=== PATIENT | female | born 2000 | race Caucasian/White ===

== ENCOUNTER 2022-05-28 18:25 | Outpatient (CLI) | payer OTHER, SELFPAY ==
--- OUTSIDE RECORDS SUMMARY | 2022-06-10 11:03 | XMS_ITS | Clinical Summary ---
:2000 Author Organization [employer] [facility] [place] [address] Care Team Providers Name Role Phone Clinic, [...] disorder once daily. s ent)) (HC) traZODone TAKE 1/2 TO 1 10 Tablet 0 05/02/2022 Disco ntinued (DESYREL) 50 mg TABLET(25 TO 2 tabletIndications 50 MG) BY : Insomnia, MOUTH AT unspecified type BEDTIME NEEDED FOR SLEEP traZODone TAKE 1/2 TO 1 10 Tablet 0 05/19/2022 Disco ntinued (DESYREL) 50 mg TABLET(25 TO 2 ( *Medication tabletIndications 50 MG) BY ad justment) : Insomnia, MOUTH AT unspecified type BEDTIME NEEDED FOR SLEEP Active Problems Problem Noted Date Bipolar 1 disorder 05/07/2021 Anxiety 05/07/2021 Encounters Date Type Specialty Care Team Description 05/29/2022 Orders Only Scanner <No scans attac hed> 05/29/2022 Orders Only Scanner <No scans attac hed> 05/29/2022 Orders Only Scanner <No scans attac hed> 05/27/2022 Office Visit Gloria Narvaez, Medic ation Management; BANKING SERVICES CLERK Follow Up 05/27/2022 Travel 05/26/2022 Refill Gloria Narvaez, Refil l Request (Trazodone) BANKING SERVICES CLERK 05/15/2022 Refill Gloria Narvaez, Refil l Request (Trazodone) BANKING SERVICES CLERK 04/29/2022 Refill Gloria Narvaez, Refil l Request (Trazodone) BANKING SERVICES CLERK 04/17/2022 Office Visit Gloria Narvaze, Medic ation Management; BANKING SERVICES CLERK Follow Up 04/17/2022 Travel 03/24/2022 Office Visit Gloria Narvaez Follo w Up BANKING SERVICES CLERK 03/24/2022 Travel from Last 3 Months Immunizations Name Administration Dates Next Due COVID-19 vaccine (Salesconx 30mcg/0.3mL) PF, 1, 12/12/2020 MDV Social History [...] Mass Index - - Plan of Treatment Upcoming Encounters Date Type Specialty Care Team Description 06/10/2022 Office Visit Betty Castro Ma, PA [address] [place], [place] [address] (Wo rk) Health Maintenance Due Date Last Done Comments Well Child Check for age 1006/20/2005 3-20 Pneumococcal series for age 1107/21/2008 19-64 (1 - PCV) HPV series for age 9-26 (1 - 2013 2-dose series) Tdap 2013 Chlamydia for age 16-24 2018 Hepatitis C screening for 2020 age 18-79 COVID-19 vaccine series (3 - 02/27/2021 01/02/2021, 021 Booster for Pfizer series) Influenza for age 9-49 05/01/2022 BMI (ht and wt on same day) 05/07/2022 05/07/2021, 11/08/19 21 for age 18+ Depression screening for age 0905/27/2023 05/27/2022, 022, 12+ 04/17/2022, Additional history exists Meningococcal series for age Aged Out No longer eligible -21 based on patient 's age to complete this topic Procedures Procedure Name Priority Date/Time Associated Diagnosis Comme nts SCAN-RADIOLOGY 05/29/2022 12:00 AM Result s for this REPORT CDT procedure are i n the results section. SCAN-RADIOLOGY 05/29/2022 12:00 AM Result s for this REPORT CDT procedure are i n the results section. SCAN-RADIOLOGY 05/29/2022 12:00 AM Result s for this REPORT CDT procedure are i n the results section. from Last 3 Months Results SCAN-RADIOLOGY REPORT (05/29/2022 12:00 AM CDT)Only the most recent of3 results within the time period is included. Narrative This result has an attachment that is no t available. Scanner OTHER from Last 3 Months Insurance Payer Benefit Plan / Subscriber ID Effective Dates Phone Addre ss Type Group BLUE CROSS BLUE CROSS OF [id number] 2021-Present [address] [address] [place] [address] Care Teams Demand Equipment Repairer Relationship Specialty Start Date End Date Clinic, No Pcp Or PCP - General 11/02/20 .
== END 2022-05-28 18:26 | disposition home or self-care (01) ==
PROVIDERS: PCP Physician Assistant; Visit Provider Family Medicine
DX: S89.92XA Unspecified injury of left lower leg, initial encounter (principal); V13.4XXA Pedal cycle driver injured in collision with car, pick-up truck or van in traffic accident, initial encounter; Y92.414 Local residential or business street as the place of occurrence of the external cause; Y93.55 Activity, bike riding
CPT/HCPCS: A0998

== ENCOUNTER 2022-05-29 15:33 | Emergency (ER) | payer OTHER, SELFPAY ==
[2022-05-29] VITALS (9 sets, daily range): BP systolic 118–138; BP diastolic 77–102; PULSE 69–92; RESP 16–20; TEMP 37.2; O2SAT 94–99; BMI 21.5
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
--- OUTSIDE RECORDS SUMMARY | 2022-05-29 17:28 | XMS_ITS | Clinical Summary ---
:2000 Author Organization [employer] [facility] [place] [address] Care Team Providers Name Role Phone Clinic, No Pcp Or Primary Care Provider Unavailable Allergies Active Allergy Reactions Severity Noted Date Comments Caramel GI Upset 11/07/2020 vomiting Spider Venom Other - Describe In 05/08/2021 Passes o ut, shaky, Comment Field severe swellin g Medications Medication Sig Dispensed Refills Start Date End Date Status medication order CBD Gummies 0 06/04/2021 Active composer Daily cariprazine Take 1 30 Capsule 1 05/27/2022 Active (Vraylar) 6 mg Capsule (6 capsuleIndication mg) by mouth s: Mood disorder once daily. (HC) cariprazine Take 1 30 Capsule 1 04/17/2022 Discon tinued (Vraylar) 6 mg Capsule (6 2 (Reo rder capsuleIndication mg) by mouth (E-cancel not s: Mood disorder once daily. s ent)) (HC) traZODone Take 0.5-1 10 Tablet 0 04/21/2022 Disconti nued (DESYREL) 50 mg Tablets 2 tabletIndications (25-50 mg) by : Insomnia, mouth at unspecified type bedtime if needed for Sleep. traZODone TAKE 1/2 TO 1 10 Tablet 0 05/02/2022 Disco ntinued (DESYREL) 50 mg TABLET(25 TO 2 tabletIndications 50 MG) BY : Insomnia, MOUTH AT unspecified type BEDTIME NEEDED FOR SLEEP traZODone TAKE 1/2 TO 1 10 Tablet 0 05/19/2022 Disco ntinued (DESYREL) 50 mg TABLET(25 TO 2 ( *Medication tabletIndications 50 MG) BY mathew bryan) : Insomnia, MOUTH AT unspecified type BEDTIME NEEDED FOR SLEEP Active Problems Problem Noted Date Bipolar 1 disorder 05/07/2021 Anxiety 05/07/2021 Encounters Date Type Specialty Care Team Description 05/27/2022 Office Visit Gloria Narvaez, Medic ation Management; X RAY EQUIPMENT SERVICER Follow Up 05/27/2022 Travel 05/26/2022 Refill Solange Gloriacam Sharma, Refil l Request (Trazodone) X RAY EQUIPMENT SERVICER 05/15/2022 Refill Andriaalexsander Gloriacam Sharma Refil l Request (Trazodone) X RAY EQUIPMENT SERVICER 04/29/2022 Refill AndriaGloria beltre Refil l Request (Trazodone) X RAY EQUIPMENT SERVICER 04/17/2022 Office Visit Gloria Narvaez, Medic ation Management; X RAY EQUIPMENT SERVICER Follow Up 04/17/2022 Travel 03/24/2022 Office Visit Gloria Narvaez Follo w Up X RAY EQUIPMENT SERVICER 03/24/2022 Travel from Last 3 Months Immunizations Name Administration Dates Next Due COVID-19 vaccine (Pirq 30mcg/0.3mL) PF, 1, 12/12/2020 MDV Social History Tobacco Use Types Packs/Day Years Used Date Never Smoker Smokeless Tobacco: Never Used Tobacco Cessation: Counseling Given: Yes Alcohol Use Standard Drinks/Week Comments Not Currently 0 (1 standard drink = 0.6 oz pure alcoho l) Sex Assigned at Date Recorded Not on file COVID-19 Exposure Response Date Recorded In the last 10 days, have you been in contact with No / Unsu re 05/27/2022 7:25 AM CDT someone who was confirmed or suspected to have Coronavirus/COVID-19? Obstetrics History Last Filed Vital Signs Vital Sign Reading Time Taken Comments Blood Pressure 125/81 05/27/2022 7:33 AM CDT Pulse 73 05/27/2022 7:33 AM CDT Temperature - - Respiratory Rate - - Oxygen Saturation 98% 05/07/2021 2:56 PM CDT Inhaled Oxygen Concentration - - Weight 56.8 kg (125 lb 4.8 oz) 04/17/2022 10:04 AM CDT Height 162 cm (5' 3.78) 05/07/2021 2:56 PM CDT Body Mass Index - - Plan of Treatment Health Maintenance Due Date Last Done Comments Well Child Check for age 1006/20/2005 3-20 Pneumococcal series for age 1107/21/2008 19-64 (1 - PCV) HPV series for age 9-26 (1 - 2013 2-dose series) Tdap 2013 Chlamydia for age 16-24 2018 Hepatitis C screening for 2020 age 18-79 COVID-19 vaccine series (3 - 06/04/2021 01/02/2021, 021 Booster for Pfizer series) Influenza for age 9-49 05/01/2022 BMI (ht and wt on same day) 05/07/2022 05/07/2021, 11/08/19 21 for age 18+ Depression screening for age 0905/27/2023 05/27/2022, 022, 12+ 04/17/2022, Additional history exists Meningococcal series for age Aged Out No longer eligible - based on patient 's age to complete this topic Results Not on filefrom Last 3 Months Insurance Payer Benefit Plan / Subscriber ID Effective Dates Phone Addre ss Type Group BLUE CROSS BLUE CROSS OF [id number] 2021-Present [address] [address] [place] [address] Care Teams Reinspector Relationship Specialty Start Date End Date Clinic, No Pcp Or PCP - General 11/02/20 .
== END 2022-05-29 18:31 | disposition home or self-care (01) ==
PROVIDERS: Emergency Provider Family Medicine; PCP Physician Assistant
DX: R07.89 Other chest pain (principal); M25.571 Pain in right ankle and joints of right foot; M79.672 Pain in left foot; V13.0XXA Pedal cycle driver injured in collision with car, pick-up truck or van in nontraffic accident, initial encounter
CPT/HCPCS: 71101; 73610; 73630; 76604; 76705; 93308; 99284; 99291

== ENCOUNTER 2022-10-18 21:07 | Outpatient (CLI) | payer OTHER, SELFPAY | END 2022-10-18 21:08 | disposition home or self-care (01) | LOC: AMB 10-27 15:43 | PROVIDERS: PCP Physician Assistant; Visit Provider Family Medicine | DX: R20.0 Anesthesia of skin (principal) ==

== ENCOUNTER 2023-02-16 20:43 | Emergency (ER) | payer OTHER, SELFPAY ==
[2023-02-16 21:02] VITALS: BP 118/70; PULSE 84; RESP 16; TEMP 37.7; O2SAT 96; BMI 22.3
--- NOTE | 2023-02-16 22:53 | ED_ITS ---
HPI - General Adult General Chief complaint: Abdominal Pain Stated complaint: Abdominal pain, possibly ate wire brush bristle Time Seen by Provider: 02/16/23 22:48 History of Present Illness HPI narrative: Pt aox4, ABCs intact. Pt arrives c/o periumbilical abdominal pain that started this morning. Patient states that she ate some grilled chicken and pork last night off a grill that was cleaned with a wire brush. Patient having black and loose stools since. patient also feeling nauseated. 22-year-old young woman presentation to the emergency department with concern of left low abdominal pain. Started more this morning. She recalls eating some grilled meat at the boyfriend's parents home on a grill that had been clean with a wire brush. She remembers this sharp object in her mouth that she was uncertain of at the time but went ahead and swallowed. This morning started to have some abdominal pain and she has noted ?black and tarry stools?. Is feeling nauseated well. No fever. Generally quite healthy. She has not taken any Pepto-Bismol or anything else that she would associate with having black stools. Sharp and somewhat colicky pain. No family history of bowel disorders rheumatological or otherwise. Related Data Home Medications Medication Instructions Recorded Confirmed cariprazine 6 mg capsule (Vraylar) 6 mg PO DAILY 05/29/22 05/29/22 cbd gummies 05/29/22 Allergies Allergy/AdvReac Type Severity Reaction Status Date / Time spider venom AdvReac Intermediate pain, Verified 02/17/23 00:26 syncope Review of Systems Status of ROS: Reports: 6 or more systems reviewed and unremarkable except as noted in History and below [facility] Social History Smoking Status: Never smoker Do you use any of these nicotine containing products: None Second hand tobacco smoke exposure: No How often do you have a drink containing alcohol: 2-4 times a month How many standard drinks containing alcohol do you have on a typical day: 3 or 4 How often do you have six or more drinks on one occasion: Never AUDIT-C Alcohol total score: 3 Non-prescribed substance use: marijuana (any form) service: No Exam Narrative: Exam Narrative: Pleasant. Direct in communication. NAD. Breathing easily. Heart with regular rate and rhythm. Lungs are clear. Abdomen with present bowel sounds and mild to moderately tender in the left lower abdomen. No peritoneal signs. Extremities are without edema. She is well-perfused. Oropharynx is moist. Const: Vital Signs, click to edit/add: Vital Signs - 24 hr 02/16/23 21:02 02/17/23 00:12 Temperature 99.8 F H Pulse Rate [Pulse Oximeter] 84 72 Respiratory Rate 16 18 Blood Pressure [Ri ght Upper Arm] 118/70 121/54 L Pulse Oximetry 96 98 Oxygen Delivery Me thod Room Air Documenting provider has reviewed patient's vital signs: yes Course Vital Signs Vital signs: Initial Vital Signs Temperature 99.8 F H 02/16/23 21:02 Temperature Source Temporal Artery Scan 02/16/23 21:02 Pulse Rate 84 02/16/23 21:02 Respiratory Rate 16 02/16/23 21:02 Blood Pressure 118/70 02/16/23 21:02 Blood Pressure Mean 86 02/16/23 21:02 Pulse Oximetry 96 02/16/23 21:02 Vital Signs Temperature 99.8 F H 02/16/23 21:02 Pulse Rate 84 02/16/23 21:02 Respiratory Rate 16 02/16/23 21:02 Blood Pressure 118/70 02/16/23 21:02 Pulse Oximetry 96 02/16/23 21:02 Temperature 99.8 F H 02/16/23 21:02 Pulse Rate 72 02/17/23 00:12 Respiratory Rate 18 02/17/23 00:12 Blood Pressure 121/54 L 02/17/23 00:12 Pulse Oximetry 98 02/17/23 00:12 Oxygen Delivery Method Room Air 02/17/23 00:12 Medical Decision Making [facility] Narrative Medical decision making narrative: Certainly possible she does have micro perforation from swallowing wire bristle. Stool guaiac I think is less helpful at this time. Could do a flat plate looking for free air but if present would want to look further with CT enough absent would want to look further. Still with potential urinary tract infection in differential, ovarian cyst. Infectious enteritis also possibility. Does not appear to be constipated. Pending labs. Hydrate also for IV contrasted media. Does not appear to need pain medication antiemetic at this time. Labs are reassuring. CT scan without evidence of acute abnormality. I did review these images. Radiology over-read however as below. Discussed findings with Ms. Dukes and her parents. 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 It measures 2.4 x 1.7 x 8.5 centimeters. It has features suggesting a benign, slow-growing process. The pineal seen to correlate with a history of left lower quadrant pain. No sign of diverticulosis or diverticulitis. Normal appearance of the left urinary system and left adnexal region. Normal CT of the abdomen with contrast. See patient discharge plan Lab Data Lab results reviewed: Yes I reviewed the patient's lab results Labs: Lab Results 02/16/23 02/16/23 02/17/23 Range/Units 23:21 23:25 01:18 WBC 6.44 (4.50-11.00) K/uL RBC 4.76 (4.00-5.20) m/uL Hgb 13.5 (12.0-16.0) gm/dL Hct 39.6 (33.0-51.0) % MCV 83 (80-100) fL MCH 28 (26-34) pg MCHC 34 (32-36) gm/dL RDW Coeff of Zeb 12.6 (11.5-15.5) % Plt Count 296 (140-440) K/uL Neut % (Auto) 58.6 (42.0-72.0) % Lymph % (Auto) 32.3 (20-44) % Mccreary % (Auto) 7.5 (0.0-11.0) % Eos % (Auto) 1.1 (0.0-7.0) % Baso % (Auto) 0.3 (0.0-3.0) % Neut # (Auto) 3.78 (1.7-7.0) K/uL Lymph # (Auto) 2.08 (0.90-2.90) K/uL Mccreary # (Auto) 0.50 (0.00-0.90) K/UL Eos # (Auto) 0.07 (0.00-0.50) K/uL Baso # (Auto) 0.02 (0.00-0.30) K/uL Sodium 133 L (135-149) mmol/L Potassium 3.6 (3.6-5.1) mmol/L Chloride 103 (96-114) mmol/L Carbon Dioxide 23 (20-32) mmol/L BUN 19 (5-24) mg/dL Creatinine 0.8 (0.5-1.5) mg/dL Estimated Creat Clear 96.86 Estimated GFR 108 ml/min Glucose 102 (60-115) mg/dL Calcium 9.6 (8.4-10.6) mg/dL C-Reactive Protein < 0.5 L (0.5-1.0) mg/dL HCG, Qual Negative (Negative) Urine Color Yellow (Yellow) Urine Appearance Slightly Cloudy A (Clear) Urine pH 5.5 (5.0-8.5) Ur Specific [place] 1.010 (1.000-1.030) Urine Protein Negative (Negative) Urine Glucose (UA) Negative (Negative) Urine Ketones Negative (Negative) Urine Blood Negative (Negative) Urine Nitrite Negative (Negative) Urine Bilirubin Negative (Negative) Urine Urobilinogen 0.2 (0.2-1.0) Ur Leukocyte Esterase Negative (Negative) Urine RBC 0-2 (0-2) Urine WBC 0-2 (0-5) Ur Squamous Epith Cells Moderate A (None-Few) Urine Bacteria Few A (None) Urine Mucus Few A (None) Discharge Plan Discharge Clinical Impression: Colicky abdominal pain, Retroperitoneal mass Patient Disposition: Home w/ Parent or Adult Condition: Improved Additional Instructions: Return for marked increase in persistent pain, repeated vomiting, associated fever. Might want to follow-up imaging in 9-12 months regarding this retroperitoneal structure. Prescriptions: No Action Vraylar 6 mg capsule 6 mg PO DAILY cbd gummies Follow Up/Referrals: Betty Castro PA [Primary Care Provider] - Stand Alone Forms: MyHealth Info Instructions
--- NOTE | 2023-02-16 23:06 | CRLHL7_ITS ---
For Patients: As a result of the 21st Century Cures Act, medical imaging exams and procedure reports are released immediately into your electronic medical record. You may view this report before your referring provider. If you have questions, please contact your health care provider. INDICATION: Left lower abdominal pain. Possible ingestion of a metal bristle on Thursday. COMPARISON: None available. TECHNIQUE: CT examination of the abdomen and pelvis was performed with the uneventful intravenous administration of 58 cc of Isovue 370 while 3 mm thick axial sections were obtained from the lung bases through the pubic symphysis. Oral contrast was not administered. Please note that all CT scans at this facility use dose modulation, iterative reconstruction, and/or weight-based dosing when appropriate to reduce radiation dose to as low as reasonably achievable. FINDINGS: In the abdomen, the liver, spleen, pancreas, and adrenals are normal in appearance. The kidneys are normal in appearance. The gallbladder is normal in appearance. The abdominal aorta is normal in caliber with no sign of dilatation. There is no sign of retroperitoneal mass or adenopathy. The stomach, loops of small bowel, and colon in the abdomen are normal in appearance. In the pelvis, the appendix is normal in appearance with no sign of inflammatory process. The loops of small bowel, colon, and rectum in the pelvis are normal in appearance. There is a tubular structure in the left retroperitoneum, located between the left psoas muscle and the iliacus muscle, with somewhat soft tissue density superiorly and lower density in its mid and inferior portions, for instance on axial image 72 series 2 and coronal image 63 series 4. It measures 2.4 x 1.7 centimeters in diameter and 8.5 centimeters in length. The lower density region measures 6.7 centimeters in length. This may be a retroperitoneal lymphangioma or hemangioma. The appearance is that of a benign process, and malignancy is unlikely. The uterus and adnexal regions are normal in appearance. The urinary bladder is normal in appearance. There is no sign of pelvic or inguinal mass or adenopathy. There is no sign of free air or free fluid in the abdomen or pelvis. The lung bases are clear. There is a mild C-shaped scoliosis of the thoracic and lumbar spine convex to the left. 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 It measures 2.4 x 1.7 x 8.5 centimeters. It has features suggesting a benign, slow-growing process. The pineal seen to correlate with a history of left lower quadrant pain. No sign of diverticulosis or diverticulitis. Normal appearance of the left urinary system and left adnexal region. Normal CT of the abdomen with contrast. Please note that all CT scans at this facility use dose modulation, iterative reconstruction, and/or weight-based dosing when appropriate to reduce radiation dose to as low as reasonably achievable. Dictated by Dez Blank MD @ 02/17/2023 12:56:03 AM (Electronically Signed)
--- OUTSIDE RECORDS SUMMARY | 2023-02-16 23:16 | XMS_ITS | Continuity of Care Document ---
Author Name Unknown Organization [facility] Address [address] [facility] [place] [address] Phone Care Team Providers Care Cork Slabs Sawyer Name Role Phone Juan SOCIAL SERVICE TECHNICIAN SOCIAL SERVICE TECHNICIAN, Breana Unavailable Unavailable Allergies, Adverse Reactions, Alerts Substance Reaction Status Criticality No Known Allergies Active No Inform ation Medications Medication Instructions Dosage Effective Dates (start - stop) Status Comments Vraylar 1.5 mg capsule take 1 capsule by oral route every day 1.5 MG - Active trazodone 50 mg tablet take 1.5 tablet by oral route every day At bedtime as needed 75 MG - Active EPIDIOLEX (unknown strength) CBD gummies: 25mg at bedtime Not Available - Active GLUCOSAMINE SULFATE (unknown strength) Not Available - Active MULTIVITAMINS (unknown strength) Not Available - Active Procedures Procedure Date PSYTX PT&/FAMILY 45 MINUTES PSYTX PT&/FAMILY 45 MINUTES PSYTX PT&/FAMILY 45 MINUTES PSYTX PT&/FAMILY 45 MINUTES PSYTX PT&/FAMILY 45 MINUTES PSYTX PT&/FAMILY 45 MINUTES PSYTX PT&/FAMILY 45 MINUTES PSYTX PT&/FAMILY 45 MINUTES PSYTX PT&/FAMILY 45 MINUTES OFFICE/OUTPATIENT VISIT, EST OFFICE/OUTPATIENT VISIT, EST PSYTX PT&/FAMILY 45 MINUTES PSYTX PT&/FAMILY 45 MINUTES OFFICE/OUTPATIENT VISIT, EST PSYTX PT&/FAMILY 45 MINUTES OFFICE/OUTPATIENT VISIT, EST PSYTX PT&/FAMILY 45 MINUTES OFFICE/OUTPATIENT VISIT, EST PSYTX PT&/FAMILY 45 MINUTES PSYCH DIAGNOSTIC EVALUATION OFFICE/OUTPATIENT VISIT, EST OSTEOPATHIC MANIPULATION OFFICE/OUTPATIENT VISIT, EST OSTEOPATHIC MANIPULATION OFFICE/OUTPATIENT VISIT, EST OSTEOPATHIC MANIPULATION OFFICE/OUTPATIENT VISIT, EST OFFICE/OUTPATIENT VISIT, EST OSTEOPATHIC MANIPULATION OFFICE/OUTPATIENT VISIT, EST OSTEOPATHIC MANIPULATION CRYOTHERAPY OF SKIN OFFICE/OUTPATIENT VISIT, EST OSTEOPATHIC MANIPULATION OFFICE/OUTPATIENT VISIT, EST OSTEOPATHIC MANIPULATION OFFICE/OUTPATIENT VISIT, EST X-RAY EXAM OF RIBS/POSTEROANTERIOR CHEST MINIMUM 3 VIEWS OSTEOPATHIC MANIPULATION OFFICE/OUTPATIENT VISIT, EST PSYTX PT&/FAMILY 45 MINUTES X-RAY EXAM OF ANKLE MINIMUM 3 VIEWS OFFICE/OUTPATIENT VISIT, EST PSYTX PT&/FAMILY 45 MINUTES Sports Physical PSYTX PT&/FAMILY 45 MINUTES PSYTX PT&/FAMILY 45 MINUTES PSYTX PT&/FAMILY 45 MINUTES OSTEOPATHIC MANIPULATION OFFICE/OUTPATIENT VISIT, EST PSYTX PT&/FAMILY 45 MINUTES PSYTX PT&/FAMILY 45 MINUTES PSYTX PT&/FAMILY 45 MINUTES OFFICE/OUTPATIENT VISIT, EST X-RAY EXAM OF ANKLE MINIMUM 3 VIEWS X-RAY EXAM OF FOOT COMPLETE MINIMUM 3 EWS OFFICE/OUTPATIENT VISIT, EST OFFICE/OUTPATIENT VISIT, EST OFFICE/OUTPATIENT VISIT, EST OFFICE/OUTPATIENT VISIT, EST OFFICE/OUTPATIENT VISIT, EST OFFICE/OUTPATIENT VISIT, NEW Advance Directives Directive Yes / No Effective Date File Name No Information Encounters Encounter Description Practice Location Reason(s) For Visit Diagnoses Date Provider Providers Copied on Encounter PSYTX PT&/FAMILY 45 MINUTES [facility], [address], [place], [id number], [place] tel:[phone] [facility] Bipolar disorder (chief complaint) Bipolar disorder, current episode mixed, mild 1 Yessica [facility] Breana. [address], [place], [id number], [place]. tel:[phone] Referring Provider: Breana Juan [facility], [address] [place], [address] . tel:[phone] PSYTX PT&/FAMILY 45 MINUTES [facility], [address], [place], [id number], [place] tel:[phone] [facility] Bipolar disorder (chief complaint) Bipolar disord, crnt episode manic w/o psych features, mod 1 Juan [facility] Breana. [address], [place], [id number], [place]. tel:[phone] Referring Provider: Breana Juan [facility], [address] [place], [address] . tel:[phone] PSYTX PT&/FAMILY 45 MINUTES [facility], [address], [place], [id number], [place] tel:[phone] [facility] Bipolar disorder (chief complaint) Bipolar disord, crnt episode manic w/o psych features, mod 1 [facility] Breana. [address], [place], [id number], [place]. tel:[phone] Referring Provider: Breana Juan LPC, [address] [place], [address] . tel:[phone] PSYTX PT&/FAMILY 45 MINUTES [facility], [address], [place], [id number], [place] tel:[phone] [facility] anxiety (chief complaint) Anxiety 1 Juan SOCIAL SERVICE TECHNICIAN Breana. [address], [place], [id number], [place]. tel:[phone] Referring Provider: Breana Juan LPC, [address] [place], [address] . tel:[phone] PSYTX PT&/FAMILY 45 MINUTES [facility], [address], [place], [address], [place] tel:[phone] [facility] anxiety (chief complaint) Anxiety 1 Juan SOCIAL SERVICE TECHNICIAN Breana. [address], [place], [id number], [place]. tel:[phone] Referring Provider: Breana Juan LPC, [address] [place], [address] . tel:[phone] PSYTX PT&/FAMILY 45 MINUTES [facility], [address], [place], [id number], [place] tel:[phone] [facility] Bipolar disorder (chief complaint) Bipolar disorder, current episode mixed, mild 1 Juan SOCIAL SERVICE TECHNICIAN Breana. [address], [place], [id number], [place]. tel:[phone] Referring Provider: Breana Juan LPC, [address] [place], [address] . tel:[phone] PSYTX PT&/FAMILY 45 MINUTES [facility], [address], [place], [address], [place] tel:[phone] [facility] anxiety (chief complaint) Post-traumati c stress disorder, chronic 1 Yessica MCDONALD Breana. [facility], [place], [id number], [place]. tel:[phone] Referring Provider: Breana Juan LPC, [facility] [place], [address] . tel:[phone] PSYTX PT&/FAMILY 45 MINUTES [facility], [facility] [address] [place], [place], [address], [place] tel:[phone] [facility] Bipolar disorder (chief complaint) Bipolar I Disorder, Current or most recent episode depressed, Unspecified 1 Yessica MCDONALD Breana. [facility] [address], [id number], [place]. tel:[phone] Referring Provider: Breana Juan LPC, [address] [place] [address], [address] . tel:[phone] PSYTX PT&/FAMILY 45 MINUTES [facility], [facility] [address] [place], [place], [id number], [place] tel:[phone] [facility] anxiety (chief complaint) Anxiety 1 Yessica MCDONALD Breana. [facility] [address], [id number], [place]. tel:[phone] Referring Provider: Breana Juan LPC, [facility] [place], [address] . tel:[phone] OFFICE/OUTPA TIENT VISIT, EST [facility] Family [facility], [facility] [address] [place], [place], [address], [place] tel:[phone] [facility] Follow Up of insomnia (chief complaint)Fol low Up of Bipolar disorder (chief complaint) Bipolar I Disorder, Current or most recent episode depressed, UnspecifiedIn somnia 1 Kike Valadez. [facility] [place], [address], [place]. tel:[phone] Referring Provider: Rory Stauffer, [facility] [place], [address] . tel:[phone] OFFICE/OUTPA TIENT VISIT, EST [facility], [facility], [place], [address], [place] tel:[phone] [facility] Follow Up of insomnia (chief complaint) InsomniaDepre ssion 1 Kike Valadez. [address] [place] [address], [id number], [place]. tel:[phone] Referring Provider: Rory Stauffer, [facility] [place], [address] . tel:[phone] PSYTX PT&/FAMILY 45 MINUTES [facility], [facility] [address] [place], [place], [address], [place] tel:[phone] [facility] anxiety (chief complaint) Post-traumati c stress disorder, chronic 1 Yessica Toussaint. [facility] [address], [address], [place]. tel:[phone] Referring Provider: Breana Juan LPC, [address] [place] [address], [address] . tel:[phone] PSYTX PT&/FAMILY 45 MINUTES [facility], [facility] [address] [place], [place], [address], [place] tel:[phone] [facility] anxiety (chief complaint) Post-traumati c stress disorder, chronic 1 Yessica Toussaint. [address] [place] [address], [id number], [place]. tel:[phone] Referring Provider: Breana Juan LPC, [address] [place] [address], [address] . tel:[phone] OFFICE/OUTPA TIENT VISIT, EST [facility], [facility], [place], [address], [place] tel:[phone] [facility] Follow Up of Bipolar disorder (chief complaint)ins omnia (chief complaint) Bipolar I Disorder, Current or most recent episode depressed, UnspecifiedIn somnia 1 Kike Valadez. [address] [place] [address], [id number], [place]. tel:[phone] Referring Provider: Rory Stauffer, [address] [place] [address], [address] . tel:[phone] PSYTX PT&/FAMILY 45 MINUTES [facility], [address] [place] [address], [id number], [place] tel:[phone] [facility] anxiety (chief complaint) Post-traumati c stress disorder, chronic 1 Yessica MCDONALD Breana. [address] [place] [address], [id number], [place]. tel:[phone] Referring Provider: Breana Juan LPC, [address] [place] [address], [address] . tel:[phone] OFFICE/OUTPA TIENT VISIT, EST [facility], [address] [place] [address], [id number], [place] tel:[phone] [facility] Follow Up of Bipolar disorder (chief complaint)Fol low Up of insomnia (chief complaint)Mus culoskeletal pain (chief complaint)stewart n continued (chief complaint) Bipolar I Disorder, Current or most recent episode depressed, UnspecifiedIn somniaAnterio r chest-wall painSegmental and somatic dysfunction of thoracic region 1 Kike Valadez. [address] [place] [address], [id number], [place]. tel:[phone] Referring Provider: Rory Stauffer, [address] [place] [address], [address] . tel:[phone] PSYTX PT&/FAMILY 45 MINUTES [facility], [address] [place] [address], [id number], [place] tel:[phone] [facility] anxiety (chief complaint) Post-traumati c stress disorder, chronic 1 Yessica MCDONALD Breana. [address] [place] [address], [id number], [place]. tel:[phone] Referring Provider: Breana Juan LPC, [facility] [place], [address] . tel:[phone] OFFICE/OUTPA TIENT VISIT, EST [facility], [facility] [address] [place], [place], [id number], [place] tel:[phone] [facility] depression (chief complaint)dep ression continued (chief complaint) Bipolar I Disorder, Current or most recent episode depressed, UnspecifiedAn xietyPost-tra umatic stress disorder, chronicInsomn ia Apr-2 1 Kike Valadez. [facility] [address] [place], [address], [place]. tel:[phone] Referring Provider: Rory Stauffer, [facility] [place], [address] . tel:[phone] PSYTX PT&/FAMILY 45 MINUTES [facility], [facility] [address] [place], [place], [address], [place] tel:[phone] [facility] anxiety (chief complaint) Post-traumati c stress disorder, chronic Apr-2 1 Yessica Toussaint. [facility] [address] [place], [address], [place]. tel:[phone] Referring Provider: Breana Juan LPC, [facility] [place], [address] . tel:[phone] PSYCH DIAGNOSTIC EVALUATION [facility], [facility] [address] [place], [place], [address], [place] tel:[phone] [facility] anxiety (chief complaint) Post-traumati c stress disorder, chronic Apr- 1 Yessica Toussaint. [facility] [address] [place], [address], [place]. tel:[phone] Referring Provider: Breana Juan LPC, [facility] [place], [address] . tel:[phone] OFFICE/OUTPA TIENT VISIT, EST [facility], [facility] [address] [place], [place], [address], [place] tel:[phone] [facility] Nail disorder (chief complaint) Ingrown nail Feb- 0 Morgan Santillanie. [address] [place] [address], [address], [place]. tel:[phone] Referring Provider: Rita Lewis, [address] [place] [address], [address]. tel:[phone] OFFICE/OUTPA TIENT VISIT, EST [facility], [address] [place] [address], [id number], [place] tel:[phone] [facility] Follow Up of Musculoskelet al pain (chief complaint) Intercostal painSegmental and somatic dysfunction of rib cage 9 Kike Valadez. [address] [place] [address], [id number], [place]. tel:[phone] Referring Provider: Rory Stauffer, [address] [place] [address], [address] . tel:[phone] OFFICE/OUTPA TIENT VISIT, EST [facility], [address] [place] [address], [id number], [place] tel:[phone] [facility] Back pain (chief complaint) Back painMuscle spasm of backSegmental and somatic dysfunction of thoracic regionSegment al and somatic dysfunction of rib cage 9 Kike Valadez. [address] [place] [address], [id number], [place]. tel:[phone] Referring Provider: Rory Stauffer, [address] [place] [address], [address] . tel:[phone] OFFICE/OUTPA TIENT VISIT, EST [address], [id number], tel:[phone] [facility] Musculoskelet al pain (chief complaint) Intercostal painSegmental and somatic dysfunction of thoracic regionSegment al and somatic dysfunction of lumbar regionSegment al and somatic dysfunction of rib cage 9 Kike Valadez. [address] [place] [address], [id number], . tel:[phone] Referring Provider: Rory Stauffer, [address] [place] [address], [address] . tel:[phone] OFFICE/OUTPA TIENT VISIT, EST [facility], [address] [place] [address], [id number], tel:[phone] [facility] Musculoskelet al pain (chief complaint)Inf ection (soft tissue) (chief complaint) Cellulitis of left toeCellulitis of right toeIntercosta l pain 8 Kike Valadez. [address] [place] [address], [id number], [place]. tel:[phone] Referring Provider: Rory Stauffer, [address] [place] [address], [address] . tel:[phone] OFFICE/OUTPA TIENT VISIT, EST [facility], [address] [place] [address], [id number], tel:[phone] [facility] Follow Up of Musculoskelet al pain (chief complaint)Fol low Up of Infection (soft tissue) (chief complaint) Intercostal painCelluliti s of left toeCellulitis of right toeSegmental and somatic dysfunction of thoracic regionSegment al and somatic dysfunction of rib cage 8 Kike Valadez. [address] [place] [address], [id number], [place]. tel:[phone] Referring Provider: Rory Stauffer, [address] [place] [address], [address] . tel:[phone] OFFICE/OUTPA TIENT VISIT, EST [facility], [address] [place] [address], [id number], tel:[phone] [facility] Follow Up of Musculoskelet al pain (chief complaint)Fol low Up of Infection (soft tissue) (chief complaint) Cellulitis of left toeCellulitis of right toeIntercosta l painSegmental and somatic dysfunction of thoracic regionSegment al and somatic dysfunction of rib cage May- 8 Kike Valadez. [address] [place] [address], [id number], [place]. tel:[phone] Referring Provider: Rory Stauffer, [address] [place] [address], [address] . tel:[phone] OFFICE/OUTPA TIENT VISIT, EST [facility], [address] [place] [address], [id number], [place] tel:[phone] [facility] Medicine [facility] Musculoskelet al pain (chief complaint)Inf ection (soft tissue) (chief complaint) Cellulitis of right toeCellulitis of left toeIntercosta l painSegmental and somatic dysfunction of cervical regionSegment al and somatic dysfunction of thoracic regionSegment al and somatic dysfunction of lumbar regionSegment al and somatic dysfunction of rib cage May- 3201 8 Kike Valadez. [address] [place] [address], [id number], [place]. tel:[phone] Referring Provider: Rory Stauffer, [address] [place] [address], [address] . tel:[phone] OFFICE/OUTPA TIENT VISIT, EST [facility], [address] [place] [address], [id number], [place] tel:[phone] [facility] al pain (chief complaint) Cellulitis of left toeIntercosta l painSegmental and somatic dysfunction of thoracic regionSegment al and somatic dysfunction of sacral regionSegment al and somatic dysfunction of pelvic regionSegment al and somatic dysfunction of rib cage Sep- 8 Kike Valadez. [address] [place] [address], [id number], [place]. tel:[phone] Referring Provider: Rory Stauffer, [address] [place] [address], [address] . tel:[phone] OFFICE/OUTPA TIENT VISIT, EST [facility], [address] [place] [address], [id number], [place] tel:[phone] [facility] back pain (chief complaint) Other chest painSegmental and somatic dysfunction of head regionSegment al and somatic dysfunction of cervical regionSegment al and somatic dysfunction of thoracic regionSegment al and somatic dysfunction of lumbar regionSegment al and somatic dysfunction of rib cage 8 Shoaibemilie Baig. [address], [place], [address], [place]. tel:[phone] Referring Provider: Jovanni Ca, [address] [place], [address] . tel:[phone] PSYTX PT&/FAMILY 45 MINUTES [facility], [address], [place], [id number], [place] tel:[phone] [facility] depression (chief complaint) Depression 8 Yessica Toussaint. [address], [place], [id number], [place]. tel:[phone] Referring Provider: Breana Juan LPC, [address] [place], [address] . tel:[phone] OFFICE/OUTPA TIENT VISIT, EST [facility], [address], [place], [id number], [place] tel:[phone] [facility] musculoskelet al pain (chief complaint) Pain in right ankleSprain of other ligament of right ankle, initial encounter 8 Tyrese Brock. [address] [place] [address], [address], [place]. tel:[phone] Referring Provider: Delmy Xiong , [address] [place] [address], [address]. tel:[phone] PSYTX PT&/FAMILY 45 MINUTES [facility], [address], [place], [id number], [place] tel:[phone] [facility] depression (chief complaint) Depression 8 Yessica Toussaint. [address], [place], [address], [place]. tel:[phone] Referring Provider: Breana Juan LPC, [address] [place], [address] . tel:[phone] [facility], [address], [place], [id number], tel:[phone] [facility] Sports physical (chief complaint) Encounter for examination for participation in sport Kike Valadez. [facility] [address], [address], [place]. tel:[phone] Referring Provider: Rory Stauffer, [facility] [place], [address] . tel:[phone] PSYTX PT&/FAMILY 45 MINUTES [facility], [facility], [place], [id number], tel:[phone] [facility] depression (chief complaint) Depression 8 Yessica SOCIAL SERVICE TECHNICIAN Breana. [address], [place], [id number], [place]. tel:[phone] Referring Provider: Breana Juan [facility], [address] [place], [address] . tel:[phone] PSYTX PT&/FAMILY 45 MINUTES [facility], [facility], [place], [id number], [place] tel:[phone] [facility] depression (chief complaint) Depression 8 Yessica [facility] Breana. [address], [place], [id number], [place]. tel:[phone] Referring Provider: Breana Juan [facility], [address] [place], [address] . tel:[phone] PSYTX PT&/FAMILY 45 MINUTES [facility], [address], [place], [id number], [place] tel:[phone] [facility] depression (chief complaint) Depression 8 Juan [facility] Breana. [address], [place], [id number], [place]. tel:[phone] Referring Provider: Breana Juan LPC, [facility] [place], [address] . tel:[phone] OFFICE/OUTPA TIENT VISIT, EST [facility], [address], [place], [id number], [place] tel:[phone] [facility] Follow Up of Musculoskelet al pain (chief complaint) Pain in right footSprain of right ankle, subsequent encounterSegm ental and somatic dysfunction of lower extremity 8 Kike Valadez. [facility] [address] [place], [id number], [place]. tel:[phone] Referring Provider: Rory Stauffer, [facility] [place], [address] . tel:[phone] PSYTX PT&/FAMILY 45 MINUTES [facility], [facility], [place], [address], [place] tel:[phone] [facility] depression (chief complaint) Depression 8 [facility] Breana. [facility] [address], [address], [place]. tel:[phone] Referring Provider: Breana Juan [facility], [address] [place], [address] . tel:[phone] PSYTX PT&/FAMILY 45 MINUTES [facility], [facility], [place], [address], [place] tel:[phone] [facility] depression (chief complaint) Depression 8 Yessica [facility] Breana. [facility] [address], [address], [place]. tel:[phone] Referring Provider: Breana Juan LPC, [address] [place], [address] . tel:[phone] PSYTX PT&/FAMILY 45 MINUTES [facility], [facility] [address] [place], [place], [id number], [place] tel:[phone] [facility] depression (chief complaint) Depression 8 Yessica TAMARA Breana. [facility] [address], [address], [place]. tel:[phone] Referring Provider: Breana Yessica MCDONALD, [address] [place] [address], [address] . tel:[phone] OFFICE/OUTPA TIENT VISIT, EST [facility], [address] [place] [address], [id number], [place] tel:[phone] [facility] Follow Up of Musculoskelet al pain (chief complaint) Pain in right foot 8 Kike Valadez. [address] [place] [address], [id number], [place]. tel:[phone] Referring Provider: Rory Stauffer, [address] [place] [address], [address] . tel:[phone] OFFICE/OUTPA TIENT VISIT, EST [facility], [address] [place] [address], [id number], [place] tel:[phone] [facility] (chief complaint) Pain in right foot 8 Junior Hinojosa. [address] [place] [address], [address], [place]. tel:[phone] Referring Provider: Ashish Pacheco, [address] [place] [address], [address]. tel:[phone] [id number] OFFICE/OUTPA TIENT VISIT, EST Complete [facility], [address] [place] [address], [id number], [place] tel:[phone] [facility] Follow Up of Wound (chief complaint)dep ression (chief complaint) InsomniaDepre ssionOpen wound of right great toe w/ damage to nail, subsequent encounter 0 8 Kike Valadez. [address] [place] [address], [id number], [place]. tel:[phone] Referring Provider: Rory Stauffer, [address] [place] [address] [place], [address] . tel:[phone] OFFICE/OUTPA TIENT VISIT, EST Complete [facility], [facility] [address] [place], [place], [id number], [place] tel:[phone] [facility] Injury (chief complaint) Open wound of right great toe with damage to nail, initial encounter 8 Shoaib Baig. [facility] [address] [place], [place], [id number], [place]. tel:[phone] Referring Provider: Jovanni Ca, [address] [place] [address], [id number] . tel:[phone] OFFICE/OUTPA TIENT VISIT, EST [facility], [address] [place] [address], [id number], [place] tel:[phone] [facility] Infected Toe (chief complaint) Cellulitis of right toe 6 Junior Hinojosa. [facility] [place], [address], [place]. tel:[phone] Referring Provider: Jovanni Ca, [address] [place] [address], [id number] . tel:[phone] OFFICE/OUTPA TIENT VISIT, EST [facility], [address] [place] [address], [id number], [place] tel:[phone] [facility] infected toenail (chief complaint) Cellulitis of right toe 6 Shoaib Baig. [address] [place], [place], [id number], [place]. tel:[phone] Referring Provider: Jovanni Ca, [address] [place] [address], [id number] . tel:[phone] OFFICE/OUTPA TIENT VISIT, NEW [facility], [address] [place] [address], [id number], [place] tel:[phone] [facility] Establishing care (chief complaint) Encntr for routine child health exam w/o abnormal findingsAcneA llergic rhinitis 6 Kike Valadez. [address] [place], [place], [id number], [place]. tel:[phone] Referring Provider: Jovanni Ca, [address] [place], [address] . tel:[phone] Family History Family Member Type Diagnosis Age At Onset No Information Payers Payer name Insurance type Covered democrat ID Authoriza tijennifer(s) [facility] [id number] Social History Type Description Quantity Date Captured Comments Alcohol Use Details Unknown Caffeine Use Details Unknown Tobacco Use Status No Information Smoking Status No Information Sex Female Chief Complaint And Reason For Visit From encounter dated '04/30/2021 10:00'. Bipolar disorder (chief complaint). Description: This is a follow up visit. There is continuation of initial symptoms and improvement of initial symptoms. There is no worsening of previously reportedsymptoms. The patient reports functioning as somewhat difficult. The Global Assessment of Functioning Scale (GAF) = 60. The patient presents with compulsive thoughts, difficulty concentrating, difficulty falling asleep, feelings of guilt, increased energy, racing thoughts and restlessness but denies anxious/fearful thoughts, decreased need for sleep, depressed mood, difficulty staying asleep, diminished interest or pleasure, easily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 plenty of water. Pt strongly advised to f/u if pain persists through conservative measures - heat/ice, otc anti-inflammatories. Pt is to perform stretches to help with keeping the muscles loose and to avoid spasms.The percussion hammer was used and pt tolerated without complaint. Pt to return to clinic in 2 weeks. Related to Intercostal pain pt was prescribed ba ctrim. pt to continue foot soaks. Pt scheduled follow up in 2 weeks. Related to Cellulitis of right toe pt was prescribed ba ctrim. pt to continue foot soaks. Pt scheduled follow up in 2 weeks. Related to Cellulitis of left toe Patient had OMT done in office. Patient stated improvement after treatment was completed. Patient is advised to drink plenty of water for the next two days. Patient is to follow up in 2 weeks. Patient agrees to plan. Related to Intercostal pain Pt was instructed to soak foot in hot water and milk the drainage from her toe. Pt was prescribed Bactrim DS BID for 7 days. Pt was informed that she may have to have the nail removed if the infection does not improve. Pt is to follow up in 2 weeks. Related to Cellulitis of left toe L ribs with 1V chest xray ordered. Xray did not indicate any fractures, bony abnormalities, or dislocations. Manipulation performed to listed sites after verbal consent. Pt tolerated the procedure well. Pt encouraged to drink plenty of clear fluids and may alternate tylenol and motrin as needed to tx pain Pt to rtc as needed. Related to Other chest pain 1. Take anti-inflamm atory as discussed, RICE therapy, decrease activity until pain improved. 2. Monitor for changes in condition. 3. May take OTC medications for symptomatic care. 4. Increase oral fluids to maintain hydration. 5. Follow up with your PCP or return to urgent care if your symptoms worsen or do not resolve with prescribed treatment. Related to Sprain of other ligament of right ankle, initial encounter Pt had physical exam performed in office, no abnormalities noted. Due to pt history of concussion, provider madrigal not cleared on physical form. Pt may participate in soccer but may not perform any headers in soccer. Pt and pt mother verbalized understanding and agreed to plan of care. Physical form completed and returned to pt mother. Related to Encounter for examination for participation in sport Based on today's cassie m, OMT was preformed to the listed areas. Pt tolerated without complaint or complications. Pt reports symptoms improved after tx. Pt was instructed to increase clear liquids et use Tylenol/Ibuprofen for aches. Pt was instructed to stretch ankle prior to running or biking; examples of stretches given to pt and parents. Provider instructs pt to follow up PRN. Pt was instructed to RTC if symptoms worsen or do not improve. Pt verbalizes understanding et has no further questions or concerns at this time. Related to Pain in right foot Based on today's exa m, OMT was preformed to the listed areas. Pt tolerated without complaint or complications. Pt reports symptoms improved after tx. Pt was instructed to increase clear liquids et use Tylenol/Ibuprofen for aches. Pt was instructed to stretch ankle prior to running or biking; examples of stretches given to pt and parents. Provider instructs pt to follow up PRN. Pt was instructed to RTC if symptoms worsen or do not improve. Pt verbalizes understanding et has no further questions or concerns at this time. Related to Sprain of right ankle, subsequent encounter Provider instructs p t to continue using boot when ambulating for 30 days post accident. Pt was instructed that she can DC use of crutches only in pt in completely pain free while ambulating. Pt was instructed to purchase a shower chair to aid in balance while showering in order to decrease fall risk. Pt was instructed to increase activity slowly after 30 days in boot. Pt was instructed to begin walking in a straight line and progressing to jogging then running as tolerated with no pain. when pt is able to run in a straight line with no pain she is to begin adding walking with slight turns and progressing until she is able to make sharp turns while running with no pain. Pt will follow up in 4-6 weeks for recheck of ankle; appointment was scheduled for February 22, 2018 at 1330. As a follow up note from appointment on January 01, 2018 pt will begin counseling with Breana; appointment was scheduled for January 29, 2018 at 1300. Pt was instructed to RTC if symptoms worsen or do not improve. Pt agrees c/ plan et verbalized understanding. Pt has no further questions or concerns at this time. Related to Pain in right foot Xrays ordered for 3 view right ankle and 3 view right foot. X-ray was reviewed by MED and found to have a questionable hairline fracture on distal fibula. Pt was fitted for a small maxtrax air walker boot. Pt also fitted with medium crutches. Pt demonstrated correct application of boot. Pt to wear the boot for 3-6 wks depending on symptom progression. Pt to wear at all times when weight bearing. Pt recommended to be non-weight bearing for 7-10 days. Pt to take the boot off while sleeping. Pt prognosis is excellent. MED recommended ice 15 min on 15 min off as much as possible; may alternate with moist heat after 48 hrs if it helps; ibuprofen as needed for pain. Pt recommended to f/u with PCP in 7 to 10 days for re-evaluation and repeat x-rays if indicated. Task sent to [facility] to schedule pt for f/u. All questions were answered. Related to Pain in right foot PHQ9 form completed at this time; score was 16. Provider wishes to begin pt on medication therapy such as lexapro, as well as talk therapy c/ Breana. Pt expresses readiness to begin treatment plan for depression, however father is hesitant at this time and states he would like to discuss options c/ pt and pt's mother. Importance of treatment was reviewed c/ father at this time. Father will contact office as soon as the family has made a decision to begin treatment plan as prescribed by Dr. Stokes or to visit other options. Pt was also instructed to begin OTC melatonin to aid in sleeping. Pt was instructed to keep R great toe clean. Pt was instructed to keep area cover especially when she is not home. Wound is redressed in office. TOA is applied to area and covered c/ gauze and coban. Pt was instructed to watch for signs of infection including increased swelling, fever, drainage, or increased pain. Pt was instructed to continue c/ antibiotic therapy. Pt will schedule follow up appointment pending father's choice. Pt was instructed to RTC if symptoms worsen or do not improve. Pt agrees c/ plan et verbalized understanding. Pt has no further questions or concerns at this time. Related to Open wound of right great toe w/ damage to nail, subsequent encounter PHQ9 form completed at this time; score was 16. Provider wishes to begin pt on medication therapy such as lexapro, as well as talk therapy c/ Breana. Pt expresses readiness to begin treatment plan for depression, however father is hesitant at this time and states he would like to discuss options c/ pt and pt's mother. Importance of treatment was reviewed c/ father at this time. Father will contact office as soon as the family has made a decision to begin treatment plan as prescribed by Dr. Stokes or to visit other options. Pt was also instructed to begin OTC melatonin to aid in sleeping. Pt was instructed to keep R great toe clean. Pt was instructed to keep area cover especially when she is not home. Wound is redressed in office. TOA is applied to area and covered c/ gauze and coban. Pt was instructed to watch for signs of infection including increased swelling, fever, drainage, or increased pain. Pt was instructed to continue c/ antibiotic therapy. Pt will schedule follow up appointment pending father's choice. Pt was instructed to RTC if symptoms worsen or do not improve. Pt agrees c/ plan et verbalized understanding. Pt has no further questions or concerns at this time. Related to Insomnia PHQ9 form completed at this time; score was 16. Provider wishes to begin pt on medication therapy such as lexapro, as well as talk therapy c/ Breana. Pt expresses readiness to begin treatment plan for depression, however father is hesitant at this time and states he would like to discuss options c/ pt and pt's mother. Importance of treatment was reviewed c/ father at this time. Father will contact office as soon as the family has made a decision to begin treatment plan as prescribed by Dr. Stokes or to visit other options. Pt was also instructed to begin OTC melatonin to aid in sleeping. Pt was instructed to keep R great toe clean. Pt was instructed to keep area cover especially when she is not home. Wound is redressed in office. TOA is applied to area and covered c/ gauze and coban. Pt was instructed to watch for signs of infection including increased swelling, fever, drainage, or increased pain. Pt was instructed to continue c/ antibiotic therapy. Pt will schedule follow up appointment pending father's choice. Pt was instructed to RTC if symptoms worsen or do not improve. Pt agrees c/ plan et verbalized understanding. Pt has no further questions or concerns at this time. Related to Depression 1. Wound cleaned, nu mbed with lidocaine, pulled away from top of the nail and excess skin removed via 11 blade scalpel. Bleeding controlled. Wound cleaned with surgical soap, sterile gauze. Iodoform strip gauze placed between swollen skin and toenail to try to reduce chance of growing together. Wound dressed. Encouraged to follow up with PCP in 2-3 days for re-evaluation of wound. 2. Keep wound clean and dry, change twice per day. 3. Watch for s/s infection. 4. Take antibiotic as ordered to help prevent further infection. Related to Open wound of right great toe with damage to nail, initial encounter Father was present f or the office visit. The toe had greatly improved from her last visit. The pt was given an additional round of antibiotics to complete the healing process. She will continue to sit out of cross country and PE. Father agreed to the plan and had no additional questions at this time. Related to Cellulitis of right toe Pt advised to soak a ffected area in warm water and dishwashing detergent. Pt is to ensure area is completely dry, then apply bactroban and bandage. Pt is to wear protective footwear. Pt given school excuse to keep from any physical activity for 1 week. Pt prescribed keflex 250mg QID x10 days, script sent to [facility] pharmacy. Pt is to RTC or follow up if symptoms persist or worsen. Related to Cellulitis of right toe Patient had physical done in office. Patient has no abnormalities. Patient may return to daily activities. Patient is to continue taking her daily vitamin. Patients mother is informed how urgent care is ran. Patient and patients mother stated agreement . No other questions or concerns at this time. Related to Encntr for routine child health exam w/o abnormal findings Patient is to contin ue using her Zyrtec D when her allergies flare up. patient is to continue using Sudafed when needed. Pts mother is to call office when needed. Patient and patients mother stated agreement. No other questions or concerns at this time. Related to Allergic rhinitis Provider offered pat jasmin Baez. Patient is going to keep using her acne wash and scrub she has at home. Pt is to let us know if she changes her mind. Patient stated agreement. No other questions or concerns. Related to Acne Assessments Type Assessment Date assessment Bipolar disorder, current episod e mixed, mild Mental Status Date Cognitive Assessment Orientation - [place] ed to time, place, person, situation. Patient Care Teams Name Effective Dates (start - stop) Status Members No Information
[2023-02-16] MEDS: 0.9 % SODIUM CHLORIDE 1000 ml 1,000 ML IV (23:24)
[2023-02-16 23:29] LABS: Hematocrit 39.6 % (33.0-51.0); Hemoglobin* 13.5 gm/dL (12.0-16.0); Mean Corpuscular HGB Conc 34 gm/dL (32-36); Mean Corpuscular Hemoglobin 28 pg (26-34); Mean Corpuscular Volume 83 fL (80-100); Platelet Count* 296 K/uL (140-440); Red Blood Count 4.76 m/uL (4.00-5.20); White Blood Count* 6.44 K/uL (4.50-11.00)
[2023-02-16 23:30] LABS: Basophils Absolute Auto 0.02 K/uL (0.00-0.30); Basophils Percent Auto 0.3 % (0.0-3.0); Eosinophils Absolute Auto 0.07 K/uL (0.00-0.50); Eosinophils Percent Auto 1.1 % (0.0-7.0); Immature Granulocytes Abs Auto 0.01 K/uL (0.00-0.30); Immature Granulocytes Pct Auto 0.2 %; Lymphocytes Absolute Auto 2.08 K/uL (0.90-2.90); Lymphocytes Percent Auto 32.3 % (20-44); Monocytes Percent Auto 7.5 % (0.0-11.0); Neutrophils Absolute Auto 3.78 K/uL (1.7-7.0); Neutrophils Percent Auto 58.6 % (42.0-72.0); RDW Coefficient of Variation % 12.6 % (11.5-15.5)
[2023-02-16 23:35] LABS: Slide Review Reflex No
[2023-02-16 23:41] LABS: Chloride* 103 mmol/L (96-114); Potassium* 3.6 mmol/L (3.6-5.1); Sodium* 133 mmol/L (135-149)
[2023-02-16 23:44] LABS: Creatinine* 0.8 mg/dL (0.5-1.5); Est. Creatinine Clearance* 96.86; Estimated Glomerular Filt Rate 108 ml/min
[2023-02-16 23:45] LABS: HCG Qualitative Serum* Negative (Negative)
[2023-02-16 23:45] LABS: Blood Urea Nitrogen* 19 mg/dL (5-24); Calcium* 9.6 mg/dL (8.4-10.6); Carbon Dioxide* 23 mmol/L (20-32); Glucose* 102 mg/dL (60-115)
[2023-02-16 23:58] LABS: C Reactive Protein* < 0.5 mg/dL (0.5-1.0)
[2023-02-17 00:12] VITALS: BP 121/54; PULSE 72; RESP 18; O2SAT 98
[2023-02-17 01:30] LABS: Appearance Urine Slightly Cloudy (Clear); Bilirubin Urine Negative (Negative); Blood Urine Negative (Negative); Color Urine Yellow (Yellow); Glucose Urine Negative (Negative); Ketones Urine Negative (Negative); Leukocyte Esterase Urine Negative (Negative); Nitrite Urine Negative (Negative); Protein Urine Negative (Negative); Urobilinogen Urine 0.2 (0.2-1.0); pH Urine 5.5 (5.0-8.5)
[2023-02-17 01:38] LABS: RBC Urine 0-2 (0-2); Squamous Epithelial Cell Urine Moderate (None-Few); WBC Urine 0-2 (0-5)
[2023-02-17 01:39] LABS: Bacteria Urine Few; Mucus Urine Few
[2023-02-17 02:07] VITALS: BP 114/75; PULSE 57; RESP 18
== END 2023-02-17 02:08 | disposition home or self-care (01) ==
PROVIDERS: Emergency Provider Family Medicine; PCP Physician Assistant
DX: R10.9 Unspecified abdominal pain (principal); K68.9 Other disorders of retroperitoneum
CPT/HCPCS: 36415; 74177; 80048; 81001; 84703; 85025; 86140; 87086; 99284; 99285; J7030; Q9967